=== PATIENT | male | born 1980 | race Caucasian/White ===

== ENCOUNTER 2018-07-21 13:15 | Emergency (ER) | payer MEDICAID ==
[~2018-07-21] VITALS: Ht 180.3 cm; Wt 104.5 kg
[~2018-07-21 13:15] MED LIST: PERCOCET 10/3251 TA1 PO
[2018-07-21 13:18] VITALS: Ht 180.3 cm; Wt 104.5 kg
[2018-07-21] MEDS ORDERED: SULFAMETHOXAZOL1 TA3 PO (14:50)
[2018-07-21] MEDS ORDERED: CYCLOBENZAPRINE10 MG PO (14:50)
[2018-07-21] MEDS ORDERED: ULTRAM50 MG PO (14:50)
[2018-07-21 15:01] VITALS: BP 136/82
== END 2018-07-21 15:02 | disposition home or self-care (01) ==
LOC: D.ER 13:15
DX: S81.011A Laceration without foreign body, right knee, initial encounter (principal); V29.9XXA Motorcycle rider (driver) (passenger) injured in unspecified traffic accident, initial encounter; Y93.89 Activity, other specified; Y92.410 Unspecified street and highway as the place of occurrence of the external cause; T14.8XXA Other injury of unspecified body region, initial encounter